=== PATIENT | male | born 1945 | race Two or more races ===

== ENCOUNTER 2023-04-13 13:56 | Outpatient (REF) | payer MEDICARE, SELFPAY ==
[2023-04-13 15:30] LABS: Hematocrit 38.9 % (42.0-52.0); Hemoglobin 12.9 g/dl (14.0-18.0); Mean Corpuscular HGB Conc 33.2 g/dl (31.0-36.0); Mean Corpuscular Hemoglobin 29.9 pg (27.0-33.0); Mean Corpuscular Volume 90.3 fL (80.0-98.0); Mean Platelet Volume 9.5 fL (9.4-12.4); Platelet Count 131 X10*3/uL (160-400); Red Blood Count 4.31 X10*6/uL (4.60-5.80); Red Cell Distribution Width 12.5 % (11.0-16.0); White Blood Count 18.9 X10*3/uL (4.8-10.8)
[2023-04-13 16:10] LABS: Erythrocyte Sedimentation Rate 2 MM/HR (0-15)
[2023-04-13 16:21] LABS: Band Neutrophils Percent 0 % (3-5); Lymphocytes Absolute Manual 15.1 X10*3/uL (1.2-4.9); Lymphocytes Percent Manual 80 % (20-40); Monocytes Absolute Manual 0.4 X10*3/uL (0.1-1.2); Monocytes Percent Manual 2 % (2-11); Neutrophils Absolute Manual 3.4 X10*3/uL (2.0-8.3); Neutrophils Percent Manual 18 % (45-73)
[2023-04-13 16:22] LABS: Platelet Estimate DECREASED (NORMAL); Platelet Morphology Comment NORMAL; RBC Morphology NORMAL
== END 2023-04-13 13:57 | disposition home or self-care (01) ==
LOC: HO.LAB 13:56
PROVIDERS: PCP Internal Medicine; Visit Provider Psychiatry & Neurology Neurology
DX: M31.6 Other giant cell arteritis (principal)
CPT/HCPCS: 36415; 85007; 85025; 85027; 85652